=== PATIENT | male | born 1985 | race Caucasian/White ===

== ENCOUNTER 2023-02-08 07:53 | Inpatient (IN) ==
[2023-02-08] MEDS ORDERED: LORazepam 1 MG TAB PO STA (08:29)
[2023-02-08] MEDS ORDERED: SODIUM CHLORIDE 0.9% 1000ML 1,000 ML IV ONE (08:36)
[2023-02-08] MEDS ORDERED: LORazepam 2 MG/1 ML VIAL IV STA (08:40)
[2023-02-08 08:46] LABS: Basophils # (auto) 0.01 K/uL (0-0.2); Basophils % (auto) 0.2 %; Eosinophils # (auto) 0.07 K/uL (0-0.50); Eosinophils % (auto) 1.2 %; Hemoglobin 14.7 g/dl (14.0-18.0); Immature Granulocytes # (auto) 0.01 K/uL (0.01-0.20); Immature Granulocytes % (auto) 0.2 %; Lymphocytes # (auto) 0.86 K/uL (1.2-3.4); Lymphocytes % (auto) 15.3 %; Mean Corpuscular Hemoglobin 31.7 pg (25.0-34.0); Mean Corpuscular Hgb Conc 35.9 g/dL (32.0-36.0); Mean Corpuscular Volume 88.4 fL (80.0-100.0); Mean Platelet Volume 10.5 fL (9.4-12.4); Monocytes # (auto) 0.72 K/uL (0.11-0.59); Monocytes % (auto) 12.8 %; Neutrophils # (auto) 3.95 K/uL (1.40-6.50); Neutrophils % (auto) 70.3 %; Platelet Count 191 K/uL (130-400); RDW Coefficient of Variation 13.3 % (11.5-14.5); RDW Standard Deviation 43.1 fL (36.4-46.3); Red Blood Count 4.64 M/uL (4.70-6.10); White Blood Count 5.62 K/ul (4.8-10.8)
[2023-02-08] MEDS ORDERED: FOLIC ACID 1 MG in SYRINGE 9.8 ML IV STA (08:58)
[2023-02-08] MEDS ORDERED: THIAMINE HCL 100 MG in SYRINGE 9 ML IV STA (08:58)
--- NOTE | 2023-02-08 09:00 | Emergency Department Note ---
Impression & Plan Alcohol withdrawal syndrome ADMIT ED Provider Note HPI: The patient is a 37-year-old gentleman who presents the emergency department with concern for alcohol withdrawal syndrome. Patient states that he drinks alcohol daily, he recently decided to stop drinking alcohol and was working with his PCP on alcohol consumption taper at home. Patient states that he seems to be doing okay and had been limiting his alcohol intake over about the past week. Patient states that overnight last night as he was getting towards the end of his taper he was very restless. He states that he began to have delirious thoughts and at times was having auditory hallucinations. Patient states that he was very tremulous when he woke up this morning and was concerned about possibly going into alcohol withdrawal and therefore he came to the ED for assessment. On arrival here to the ED the patient is very tremulous appearing, he is hypertensive, he is able to give me a coherent history. Patient is otherwise with normal heart rate, he is saturating well on room air without increased work of breathing. Patient presents with a supportive friend at the bedside. ROS: - Per HPI Differential Diagnosis: Alcohol withdrawal syndrome, Wernicke's encephalopathy, alcoholic ketosis, amongst other potential pathologies. *Outpatient medications and allergy history reviewed. *Pertinent external medical records reviewed. PE: General: Alert, anxious appearing HEENT: Normocephalic, trachea midline Eyes: Extraocular eye movement is intact, no scleral erythema Pulmonary: Clear to auscultation bilaterally, no wheezing Cardio: Regular rate and rhythm GI: Abdomen is soft to palpation : No suprapubic tenderness MSK: No evidence of trauma or malformation of the extremities, no edema Skin: No evidence of rash Neuro: Alert, no focal deficits, resting tremulous noted to the upper extremities Psychiatric: Cooperative manager monitoring: (As interpreted by myself): - An order was placed for continuous cardiac monitoring - Patient was noted to be in sinus rhythm with a rate of 85 EKG: (As interpreted by myself): Rate: 92 Rhythm: Normal sinus rhythm Intervals: Within normal limits ST changes: No ST elevation Time: 0825 Interventions provided in ED: -IV Ativan, IV fluid bolus, IV thiamine, IV folic acid Medical Decision Making: Shortly after the patient arrived IV was established and lab work ordered, patient was maintained on quality assurance monitor body. Patient was ordered IV Ativan for tremulousness and reported hallucinations although he does give me a coherent history on arrival. Patient is hypertensive on arrival but otherwise hemodynamically stable. Lab work shows no leukocytosis, hemoglobin is normal, platelet count is normal, CMP shows mild hyponatremia and hypochloremia, metabolic acidosis with serum bicarbonate level at 18, mild transaminitis which I suspect is related to the patient's alcohol abuse history with AST of 100 and ALT of 99, alk phos is within normal limits. Patient's glucose is slightly reduced at 67, he was given orange juice to drink here in the ED as he is still alert and tolerating p.o. intake. Medical alcohol level results of 72, I do suspect given the patient's clinical appearance that he is in the early stages of active withdrawal. He was given IV Ativan here in the ED as well as IV fluid bolus and IV thiamine and IV folic acid. I do feel it would be safest for him to be admitted for benzodiazepine treatment as he goes through withdrawal. Patient is in agreement to this plan and did request admission. Case was discussed with the on-call hospitalist, Dr. Lantigua, and the patient was placed for admission in stable condition. Consultants: Hospitalist service, Dr. Lantigua Disposition discussion held by myself with: Patient and friend at the bedside * CRITICAL CARE TIME: ( 39 ) minutes -Management of active alcohol withdrawal syndrome requiring IV benzodiazepine administration, time spent at the bedside, discussion with other physicians and arrangement of admission. Diagnosis: 1. Alcohol withdrawal syndrome, acute 2. Metabolic acidosis, mild, acute 3. Hyponatremia, mild, acute 4. Transaminitis, mild, alcohol induced 5. Hypoglycemia, mild, acute Disposition: Admission Reynaldo Houser DO Emergency Medicine Past Med/Surg History Social History Smoking Status: Current every day smoker Tobacco Type: Cigarettes Feels Safe at Home: Yes Allergies Allergies Allergy/AdvReac Type Severity Reaction Status Date / Time No Known Allergies Allergy Unverified 02/08/23 08:30 Home Meds Home Medications Medication Instructions Recorded Confirmed No Known Home Medications 02/08/23 02/08/23 Results & Data (ED) Vital Signs Vital Signs - 24 hr 02/08/23 08:07 02/08/23 08:45 Temperature 36.6 C Temperature Source Skin Pulse Rate 97 H Pulse Rate [Left Finger] 83 Pulse Rhythm [Left Finger] Regular Pulse Strength [Left Finger] Normal Respiratory Rate 20 17 Respiratory Effort / Characteristics Non-Labored Spontaneous Non-Labored Spontaneous Respiratory Depth Normal Normal Respiratory Pattern Regular Regular Blood Pressure 156/91 H Blood Pressure [Right Arm] 180/155 H Blood Pressure Mean 112 Blood Pressure Mean [Right Arm] 163 Blood Pressure Position [Right Arm] Sitting Pulse Oximetry 99 99 Oxygen Delivery Method Room Air Room Air Sepsis Recent Fever Within 48 Hours No Sepsis New/Unexplained Change in Mental Status N/A Sepsis Action Taken by Nursing No Action Required Laboratory Data 02/08/23 08:26 02/08/23 08:26 Lab Results 02/08/23 02/08/23 02/08/23 Range/Units 08:26 08:26 08:26 WBC 5.62 (4.8-10.8) K/ul RBC 4.64 L (4.70-6.10) M/uL Hgb 14.7 (14.0-18.0) g/dl Hct 41.0 L (42.0-52.0) % MCV 88.4 (80.0-100.0) fL MCH 31.7 (25.0-34.0) pg MCHC 35.9 (32.0-36.0) g/dL RDW Std Deviation 43.1 (36.4-46.3) fL RDW Coeff of Gwen 13.3 (11.5-14.5) % Plt Count 191 (130-400) K/uL MPV 10.5 (9.4-12.4) fL Immature Gran % (Auto) 0.2 % Neut % (Auto) 70.3 % Lymph % (Auto) 15.3 % [place] % (Auto) 12.8 % Eos % (Auto) 1.2 % Baso % (Auto) 0.2 % Neut # (Auto) 3.95 (1.40-6.50) K/uL Lymph # (Auto) 0.86 L (1.2-3.4) K/uL [place] # (Auto) 0.72 H (0.11-0.59) K/uL Eos # (Auto) 0.07 (0-0.50) K/uL Baso # (Auto) 0.01 (0-0.2) K/uL Immature Gran # (Auto) 0.01 (0.01-0.20) K/uL Sodium 134 L (136-145) mmol/L Potassium 3.8 (3.5-5.1) mmol/L Chloride 96 L (98-107) mmol/L Carbon Dioxide 18 L (21-32) mmol/L Anion Gap 20 H (3-11) BUN 7 (6-23) mg/dl Creatinine 0.77 (0.6-1.4) mg/dl Est Cr Clr Drug Dosing 141.3 ml/min Est GFR ( Amer) 135.3 ml/min Est GFR (Non-Af Amer) 116.7 ml/min BUN/Creatinine Ratio 9.1 L (10-20) Glucose 67 L (70-99(Fasting)) mg/dl Calcium 10.6 H (8.6-10.3) mg/dl Total Bilirubin 1.3 H (0.2-1.0) mg/dl AST 100 H (13-39) U/L ALT 99 H (7-52) U/L Alkaline Phosphatase 65 (34-104) U/L Total Protein 8.4 H (6.0-8.3) gm/dl Albumin 5.3 H (3.4-5.0) gm/dl Globulin 3.1 (2.5-4.0) gm/dl Albumin/Globulin Ratio 1.7 (0.9-2) Salicylates (3.0-30) mg/dl Acetaminophen (10-30) ug/ml Ethyl Alcohol mg/dL 72.2 H (<10.0) mg/dl 02/08/23 Range/Units 08:27 WBC (4.8-10.8) K/ul RBC (4.70-6.10) M/uL Hgb (14.0-18.0) g/dl Hct (42.0-52.0) % MCV (80.0-100.0) fL MCH (25.0-34.0) pg MCHC (32.0-36.0) g/dL RDW Std Deviation (36.4-46.3) fL RDW Coeff of Gwen (11.5-14.5) % Plt Count (130-400) K/uL MPV (9.4-12.4) fL Immature Gran % (Auto) % Neut % (Auto) % Lymph % (Auto) % [place] % (Auto) % Eos % (Auto) % Baso % (Auto) % Neut # (Auto) (1.40-6.50) K/uL Lymph # (Auto) (1.2-3.4) K/uL [place] # (Auto) (0.11-0.59) K/uL Eos # (Auto) (0-0.50) K/uL Baso # (Auto) (0-0.2) K/uL Immature Gran # (Auto) (0.01-0.20) K/uL Sodium (136-145) mmol/L Potassium (3.5-5.1) mmol/L Chloride (98-107) mmol/L Carbon Dioxide (21-32) mmol/L Anion Gap (3-11) BUN (6-23) mg/dl Creatinine (0.6-1.4) mg/dl Est Cr Clr Drug Dosing ml/min Est GFR ( Amer) ml/min Est GFR (Non-Af Amer) ml/min BUN/Creatinine Ratio (10-20) Glucose (70-99(Fasting)) mg/dl Calcium (8.6-10.3) mg/dl Total Bilirubin (0.2-1.0) mg/dl AST (13-39) U/L ALT (7-52) U/L Alkaline Phosphatase (34-104) U/L Total Protein (6.0-8.3) gm/dl Albumin (3.4-5.0) gm/dl Globulin (2.5-4.0) gm/dl Albumin/Globulin Ratio (0.9-2) Salicylates < 3.0 L (3.0-30) mg/dl Acetaminophen < 3 L (10-30) ug/ml Ethyl Alcohol mg/dL (<10.0) mg/dl Administered Medications Sodium Chloride (Nss 1000ml) 1,000 mls @ 999 mls/hr IV .Q1H1M ONE Stop: 02/08/23 09:36 Last Admin: 02/08/23 08:43 Dose: 999 mls/hr Documented By: OFELIA Discontinued Medications Folic Acid 1 mg/ Syringe 10 mls @ 5 mls/min IV NOW STA Stop: 02/08/23 08:59 Last Admin: 02/08/23 09:17 Dose: 5 mls/min Documented By: OFELIA Thiamine HCl 100 mg/ Syringe 10 mls @ 2 mls/min IV NOW STA Stop: 02/08/23 09:02 Last Admin: 02/08/23 09:17 Dose: 2 mls/min Documented By: OFELIA Lorazepam (Lorazepam 1 Mg Tab) 1 mg PO NOW STA Stop: 02/08/23 08:30 Last Admin: 02/08/23 08:32 Dose: Not Given Documented By: OFELIA Lorazepam (Lorazepam 2 Mg/1 Ml Vial) 1 mg IV NOW STA Stop: 02/08/23 08:41 Last Admin: 02/08/23 08:43 Dose: 1 mg Documented By: OFELIA Discharge Plan Visit Data Chief Complaint: Alcohol Withdrawal Stated Complaint: HALLUCINATIONS, RAPID HEART RATE, NAUSEA/VOMITING ED Provider: Reynaldo Houser Discharge Problem: Alcohol withdrawal syndrome Forms Stand Alone Forms: [facility], Suicide Prevention Resources Prescriptions Prescriptions: No Action No Known Home Medications Referrals Referrals: Ruth Hendricks [Primary Care Provider] -
[2023-02-08 09:04] LABS: Albumin Globulin Ratio 1.7 (0.9-2); Albumin Level 5.3 gm/dl (3.4-5.0); BUN Creatinine Ratio 9.1 (10-20); Bilirubin,Total 1.3 mg/dl (0.2-1.0); Calcium 10.6 mg/dl (8.6-10.3); Creatinine Clr Calc Pharmacy 141.3 ml/min; Est GFR (African American) 135.3 ml/min; Est GFR (Non-African American) 116.7 ml/min; Globulin 3.1 gm/dl (2.5-4.0); Potassium 3.8 mmol/L (3.5-5.1); Total Protein 8.4 gm/dl (6.0-8.3)
[2023-02-08 09:15] LABS: Acetaminophen < 3 ug/ml (10-30); Salicylate < 3.0 mg/dl (3.0-30)
--- NOTE | 2023-02-08 09:32 | History & Physical Report ---
Date of Service February 08, 2023 Assessment & Plan (1) Alcohol withdrawal syndrome: Plan: Patient presents with active etoh withdrawal. He had been cutting back his drinking over the last 3 weeks under the guidance of his PCP. He had been drinking 40-55 ounces of liquor each day and was down to <10 ounces as of yesterday. He has had some mild hallucinations but no full-blown DTs to date. Plan - * AWSS protocol with symptom-triggered ativan prn * gabapentin protocol * IV fluids * IV thiamine 500mg IV q8h x 2 days then 200mg BID thereafter * folic acid 1mg daily * MVI daily * repeat labs am * check mag level now * telemetry * consider metoprolol for BP control if BPs continue to remain markedly elevated * social work consult for inpatient/outpatient options for alcohol rehab (2) Alcohol dependence: Plan: Long-standing, severe. See #1 above. (3) Tobacco dependence: Plan: Provide nicoderm patch 14mg/day. 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 (4) Anxiety disorder: Plan: Patient recently weaned off zoloft as outpatient. Consider psych consult for assistance with anxiety; suspect he uses alcohol to cope with anxiety. Check a TSH while here. (5) Abnormal LFTs: Plan: 2nd to etoh. Repeat LFTs am. (6) Metabolic acidosis, increased anion gap: Plan: 2nd to alcohol and starvation/fasting (poor appetite for several days). Will correct with copious IV hydration & time. BMP am. (7) Hypoglycemia: Plan: 2nd to prolonged fasting, alcohol abuse, etc. Repeat BSG was >100. Add dextrose to IV fluids. Plan DVT proph - low risk; defer on chemical means for now. History of Present Illness Chief Complaint: shakes, auditory hallucinations, alcohol withdrawal Primary Care Provider: Ruth Hendricks 37yo male with long-standing alcohol dependence, tobacco dependence, and anxiety/panic disorder presents with several days of shakes, sweats/chills, nausea/emesis, and additional alcohol withdrawal symptoms. After meeting with his PCP about 3-4 weeks ago he had a plan to gradually cut back the amount of alcohol consumption over a 3 week time span. At baseline he was consuming between 40 to 55 ounces of vodka on a daily basis. Denies any beer or wine consumption. He was gradually cutting back the daily alcohol amount by about 10%. Over the last few days he was down to <10 ounces of vodka/day. Yesterday he took about 6 ounces. Starting 1 week ago he developed nausea and vomiting any time he tried to eat. His appetite has been poor, and he has lost about 5 pounds of weight over the last few weeks. He has had hot/cold chills & sweats. Overnight he had auditory hallucinations (hearing conversations of people who weren't there, etc) and had insomnia last evening. His shakes got significantly worse in the last 24 hours as well. Due to the above symptoms he came to the ER today for evaluation. He reports he is committed to stopping his alcohol consumption. His is supportive of this goal. Allergies Allergy/AdvReac Type Severity Reaction Status Date / Time No Known Allergies Allergy Unverified 02/08/23 08:30 Home Medications Medication Instructions Recorded Confirmed Type No Known Home Medications 02/08/23 02/08/23 History Past Med/Surg History Medical History (Updated 02/08/23 @ 10:37 by Ramana Kincaid MD) Alcohol dependence Anxiety disorder Panic disorder Tobacco dependence Surgical History (Updated 02/08/23 @ 10:33 by Ramana Kincaid MD) No pertinent past surgical history Family History (Updated 02/08/23 @ 10:34 by Ramana Kincaid MD) Uncle Polysubstance abuse paternal Brother Alcohol abuse Father COPD (chronic obstructive pulmonary disease) Social History (Updated 02/08/23 @ 10:34 by Ramana Kincaid MD) Smoking Status: Current every day smoker Tobacco Type: Cigarettes Age Started Using Tobacco: 19; packs per day: 0.5; Second Hand Exposure: No; Do You Dip or Chew Tobacco: No; Tobacco Cessation Education Requested by Patient: No Hx Alcohol Use: Yes Alcohol type: hard liquor Alcohol type Comment: 40-55 ounces/day (vodka) Hx Substance Use: No Beliefs That Will Affect Care: None marital status: Current Living Situation: Spouse current occupational status: student 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 - [employer] How many Children do You have: 0 Feels Safe at Home: Yes Safety Concerns: Feels Safe At This Time and Afraid for Self Assistive Devices: Glasses Review of Systems Review of Systems: gen - no fevers but has had cold/hot chills, poor appetite, weight loss eyes - no visual disturbance HENT - no ear pain or sore throat CV - no chest pain pulm - no cough or dyspnea GI - no abd pain; +nausea/emesis; no BRBPR, no melena, no hematemesis, no coffee-ground emesis - no dysuria musculo - chronic low back pain neuro - headaches early in the etoh withdrawal period 2-3 weeks ago skin - no rash endo - no diabetes psych - chronic anxiety Physical Exam Physical Exam: gen - tremulous, but awake/alert, follows commands, no psychosis skin - no rash; multiple tattoos eyes - PERRL, mild horizontal nystagmus heart - tachy, s1 s2, no murmur lungs - CTA b/l abd - soft NT ND BS+; no HSM ext - no edema, pulses 2+ b/l neuro - DTRs brisk b/l upper & lower extremities; strength 5/5 x 4 exts; gait not tested psych - a/o x 3 Results & Data Results & Data Vital Signs (Past 12 Hours) Vital Signs Temp Pulse Pulse Resp BP BP Pulse Ox 02/08/23 08:45 83 17 180/155 H 99 02/08/23 08:07 36.6 C 97 H 20 156/91 H 99 O2 Del Method 02/08/23 08:45 Room Air 02/08/23 08:07 Room Air Laboratory Results Laboratory Results - last 24 hr 02/08/23 02/08/23 02/08/23 08:26 08:26 08:26 WBC 5.62 RBC 4.64 L Hgb 14.7 Hct 41.0 L MCV 88.4 MCH 31.7 MCHC 35.9 RDW Std Deviation 43.1 RDW Coeff of Gwen 13.3 Plt Count 191 MPV 10.5 Immature Gran % (Auto) 0.2 Neut % (Auto) 70.3 Lymph % (Auto) 15.3 [place] % (Auto) 12.8 Eos % (Auto) 1.2 Baso % (Auto) 0.2 Neut # (Auto) 3.95 Lymph # (Auto) 0.86 L [place] # (Auto) 0.72 H Eos # (Auto) 0.07 Baso # (Auto) 0.01 Immature Gran # (Auto) 0.01 Sodium 134 L Potassium 3.8 Chloride 96 L Carbon Dioxide 18 L Anion Gap 20 H BUN 7 Creatinine 0.77 Est Cr Clr Drug Dosing 141.3 Est GFR ( Amer) 135.3 Est GFR (Non-Af Amer) 116.7 BUN/Creatinine Ratio 9.1 L Glucose 67 L POC Glucose Calcium 10.6 H Magnesium Total Bilirubin 1.3 H AST 100 H ALT 99 H Alkaline Phosphatase 65 Total Protein 8.4 H Albumin 5.3 H Globulin 3.1 Albumin/Globulin Ratio 1.7 Salicylates Acetaminophen Ethyl Alcohol mg/dL 72.2 H SARS-CoV-2, RNA, NAAT 02/08/23 02/08/23 02/08/23 08:27 08:28 09:19 WBC RBC Hgb Hct MCV MCH MCHC RDW Std Deviation RDW Coeff of Gwen Plt Count MPV Immature Gran % (Auto) Neut % (Auto) Lymph % (Auto) [place] % (Auto) Eos % (Auto) Baso % (Auto) Neut # (Auto) Lymph # (Auto) [place] # (Auto) Eos # (Auto) Baso # (Auto) Immature Gran # (Auto) Sodium Potassium Chloride Carbon Dioxide Anion Gap BUN Creatinine Est Cr Clr Drug Dosing Est GFR ( Amer) Est GFR (Non-Af Amer) BUN/Creatinine Ratio Glucose POC Glucose Calcium Magnesium Pending Total Bilirubin AST ALT Alkaline Phosphatase Total Protein Albumin Globulin Albumin/Globulin Ratio Salicylates < 3.0 L Acetaminophen < 3 L Ethyl Alcohol mg/dL SARS-CoV-2, RNA, NAAT NEGATIVE 02/08/23 10:00 WBC RBC Hgb Hct MCV MCH MCHC RDW Std Deviation RDW Coeff of Gwen Plt Count MPV Immature Gran % (Auto) Neut % (Auto) Lymph % (Auto) [place] % (Auto) Eos % (Auto) Baso % (Auto) Neut # (Auto) Lymph # (Auto) [place] # (Auto) Eos # (Auto) Baso # (Auto) Immature Gran # (Auto) Sodium Potassium Chloride Carbon Dioxide Anion Gap BUN Creatinine Est Cr Clr Drug Dosing Est GFR ( Amer) Est GFR (Non-Af Amer) BUN/Creatinine Ratio Glucose POC Glucose 103 H Calcium Magnesium Total Bilirubin AST ALT Alkaline Phosphatase Total Protein Albumin Globulin Albumin/Globulin Ratio Salicylates Acetaminophen Ethyl Alcohol mg/dL SARS-CoV-2, RNA, NAAT Diagnostic Findings EKG - my reading - NSR, no ST changes; artifact present PG Care Time/CCT Total # of Minutes Spent Total Time Spent with Patient: Total time spent is greater than 50% in coordination of care (as documented) at patient's floor/unit and/or counseling patient: Coding Level of Care Code 06724 INT INP/OBS CARE 2/55MIN Diagnoses Alcohol withdrawal syndrome F10.939 Alcohol dependence F10.20 Tobacco dependence F17.200 Anxiety disorder F41.9 Abnormal LFTs R79.89 Metabolic acidosis, increased anion gap E87.29 Hypoglycemia E16.2
[2023-02-08] MEDS ORDERED: ONDANSETRON INJ 2 MG/ML 2 ML VIAL IV PRN (11:37)
[2023-02-08] MEDS ORDERED: Ativan PO Alcohol Withdrawal--Active Protocol PO PRN (11:37)
[2023-02-08] MEDS ORDERED: GABAPENTIN 1200MG ALCOHOL WITHDRAWAL LOAD PO STA (11:37)
[2023-02-08] MEDS ORDERED: LORazepam 1 MG TAB PO PRN ×2 (11:37)
[2023-02-08] MEDS ORDERED: ACETAMINOPHEN 325 MG TAB PO PRN (11:37)
[2023-02-08] MEDS ORDERED: GABAPENTIN 600 MG TAB PO ONE (12:00)
[2023-02-08] MEDS: D5NSS + 20MEQ KCL 20 MEQ/1,000 ML BAG IV SCH ×2 (12:03→19:29)
[2023-02-08] MEDS: LORazepam 1 MG TAB PO PRN ×2 (12:09→19:29)
[2023-02-08] MEDS: NICOTINE 14 MG/24 HR PATCH TD SCH (12:45)
[2023-02-08] MEDS: FAMOTIDINE 20 MG in SYRINGE 3 ML IV SCH ×2 (12:45→23:03)
[2023-02-08] MEDS: CEROVITE ADV FORMULA TAB PO SCH (12:45)
[2023-02-08] MEDS: THIAMINE HCL 500 MG in SODIUM CHLORIDE 0.9% 50 ML IV SCH ×2 (16:50→23:03)
[2023-02-08] MEDS: GABAPENTIN 600 MG TAB PO SCH ×2 (17:09→23:03)
[2023-02-09] MEDS: D5NSS + 20MEQ KCL 20 MEQ/1,000 ML BAG IV SCH ×2 (03:03→11:22)
[2023-02-09] MEDS: LORazepam 1 MG TAB PO PRN ×3 (06:21→20:53)
[2023-02-09] MEDS: GABAPENTIN 600 MG TAB PO SCH ×3 (08:07→23:15)
[2023-02-09] MEDS: CEROVITE ADV FORMULA TAB PO SCH (08:07)
[2023-02-09] MEDS: THIAMINE HCL 500 MG in SODIUM CHLORIDE 0.9% 50 ML IV SCH ×3 (08:07→23:17)
[2023-02-09] MEDS: FOLIC ACID 1 MG in SYRINGE 9.8 ML IV SCH (08:07)
[2023-02-09] MEDS: NICOTINE 14 MG/24 HR PATCH TD SCH (08:08)
[2023-02-09 08:28] LABS: Hematocrit (blood only) 34.8 % (42.0-52.0); Mean Corpuscular Hemoglobin 31.9 pg (25.0-34.0); Mean Corpuscular Hgb Conc 34.5 g/dL (32.0-36.0); Mean Corpuscular Volume 92.6 fL (80.0-100.0); Mean Platelet Volume 10.9 fL (9.4-12.4); Platelet Count 128 K/uL (130-400); RDW Coefficient of Variation 13.7 % (11.5-14.5); RDW Standard Deviation 46.5 fL (36.4-46.3); Red Blood Count 3.76 M/uL (4.70-6.10); White Blood Count 2.42 K/ul (4.8-10.8)
[2023-02-09 09:04] LABS: Albumin Globulin Ratio 1.8 (0.9-2); Albumin Level 4.1 gm/dl (3.4-5.0); BUN Creatinine Ratio 10.9 (10-20); Bilirubin,Total 0.8 mg/dl (0.2-1.0); Calcium 8.8 mg/dl (8.6-10.3); Creatinine Clr Calc Pharmacy 169.9 ml/min; Globulin 2.3 gm/dl (2.5-4.0); Total Protein 6.4 gm/dl (6.0-8.3)
--- NOTE | 2023-02-09 10:30 | Electrocardiogram Report ---
Test Reason : Blood Pressure : / mmHG Vent. Rate : 092 BPM Atrial Rate : 092 BPM P-R Int : 148 ms QRS Dur : 088 ms QT Int : 344 ms P-R-T Axes : 057 084 043 degrees QTc Int : 425 ms Normal sinus rhythm Normal ECG No previous ECGs available Confirmed by Andrez Cooper ([id number]) on 02/09/2023 10:30:18 AM Referred By: Ruth Hendricks Confirmed By:Andrez Cooper
--- NOTE | 2023-02-09 12:26 | Hospitalist Progress Note ---
Date of Service February 09, 2023 Assessment & Plan (1) Alcohol withdrawal syndrome: Plan: Ongoing withdrawal but gabapentin + symptom triggered ativan is working well. Cont gabapentin taper. Cont ativan prn. Cont MVI/folate/thiamine. Cont IVF but decrease rate to 50cc/hr since appetite is improved. Cont telemetry. (2) Alcohol dependence: Plan: Long-standing, severe. With active withdrawal. Patient is moving to [place] following this hospital stay. Thus, defer on any referrals for outpatient therapy or inpatient rehab locally here in [place]. (3) Tobacco dependence: Plan: nicoderm patch 14mg/day. 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 (4) Anxiety disorder: Plan: Patient recently weaned off zoloft as outpatient. He declines psych consult for assistance with anxiety. TSH wnl. (5) Abnormal LFTs: Plan: 2nd to etoh. Improved. Repeat ast/alt in am. (6) Metabolic acidosis, increased anion gap: Plan: 2nd to alcohol and starvation/fasting (poor appetite for several days pre- admission). Resolved. (7) Hypoglycemia: Plan: 2nd to prolonged fasting, alcohol abuse, etc. Resolved. (8) Pancytopenia: Plan: Likely 2nd to alcohol and liver toxicity from such. No evidence of any infectious process. Recheck cbc in am. Cont folate supplementation. B12 level is wnl. TSH level is wnl. Plan DVT proph - low risk; defer on chemical means for now. Making good progress to date. Admission and Anticipated Discharge Date Admission Date: February 08, 2023 Subjective tele stable overnight patient feels better overall today still anxious and still with shakes but both are improved ativan is working well for the above symptoms he feels a little unsteady when he tries to ambulate nausea resolved able to tolerate diet - first time he has been able to eat in several days no abd pain still with some minor auditory hallucinations (heard music in the room this am) but this is improved as well plan is for him to move to [place] after he gets out of the hospital his move from [place] to [place] has been in the works for a long time offered to have psych see him in consult while here - he declines however, he did state he would be willing to go back on zoloft at some point in the future Review of Systems Review of Systems: gen - no fevers; some cold chills HENT - no URI symptoms cv - no chest pain pulm - no dyspnea GI - no abd pain/nausea/emesis Physical Exam Physical Exam: gen - looks much better today; awake/alert/oriented heart - RRR, s1 s2, no murmur lungs - CTA b/l abd - soft NT ND BS+; no HSM ext - no edema, pulses 2+ b/l neuro - mild tremors only psych - a/o x 3 Results & Data Results & Data Vital Signs (Past 12 Hours) Vital Signs Temp Pulse Pulse Resp BP Pulse Ox O2 Del Method 02/09/23 11:10 36.4 C L 81 18 138/89 99 Room Air 02/09/23 07:22 36.5 C 71 18 138/93 100 Room Air 02/09/23 07:35 75 02/09/23 03:00 36.4 C L 79 20 130/89 99 Room Air Laboratory Results Laboratory Results - last 24 hr 02/09/23 02/09/23 02/09/23 07:44 07:44 07:44 WBC 2.42 L RBC 3.76 L Hgb 12.0 L Hct 34.8 L MCV 92.6 MCH 31.9 MCHC 34.5 RDW Std Deviation 46.5 H RDW Coeff of Gwen 13.7 Plt Count 128 L MPV 10.9 Sodium 139 Potassium 4.0 Chloride 108 H Carbon Dioxide 25 Anion Gap 6 BUN 7 Creatinine 0.64 Est Cr Clr Drug Dosing 169.9 Est GFR ( Amer) 146.0 Est GFR (Non-Af Amer) 126.0 BUN/Creatinine Ratio 10.9 Glucose 83 Calcium 8.8 Total Bilirubin 0.8 D AST 75 H ALT 67 H Alkaline Phosphatase 49 Total Protein 6.4 D Albumin 4.1 Globulin 2.3 L Albumin/Globulin Ratio 1.8 Vitamin B12 391 TSH 02/09/23 07:44 WBC RBC Hgb Hct MCV MCH MCHC RDW Std Deviation RDW Coeff of Gwen Plt Count MPV Sodium Potassium Chloride Carbon Dioxide Anion Gap BUN Creatinine Est Cr Clr Drug Dosing Est GFR ( Amer) Est GFR (Non-Af Amer) BUN/Creatinine Ratio Glucose Calcium Total Bilirubin AST ALT Alkaline Phosphatase Total Protein Albumin Globulin Albumin/Globulin Ratio Vitamin B12 TSH 1.134 PG Care Time/CCT Total # of Minutes Spent Total Time Spent with Patient: Total time spent is greater than 50% in coordination of care (as documented) at patient's floor/unit and/or counseling patient: Coding Level of Care Code 63967 SUB INP/OBS CARE 2MIN Diagnoses Alcohol withdrawal syndrome F10.939 Alcohol dependence F10.20 Tobacco dependence F17.200 Anxiety disorder F41.9 Abnormal LFTs R79.89 Metabolic acidosis, increased anion gap E87.29 Hypoglycemia E16.2 Pancytopenia D61.818
[2023-02-09] MEDS: FAMOTIDINE 20 MG in SYRINGE 3 ML IV SCH ×2 (12:29→23:14)
[2023-02-10] MEDS: LORazepam 1 MG TAB PO PRN ×3 (01:03→17:42)
[2023-02-10] MEDS: D5NSS + 20MEQ KCL 20 MEQ/1,000 ML BAG IV SCH (05:22)
[2023-02-10] MEDS: THIAMINE HCL 500 MG in SODIUM CHLORIDE 0.9% 50 ML IV SCH (08:21)
[2023-02-10] MEDS: FOLIC ACID 1 MG in SYRINGE 9.8 ML IV SCH (08:21)
[2023-02-10] MEDS: CEROVITE ADV FORMULA TAB PO SCH (08:21)
[2023-02-10 08:22] LABS: Basophils # (auto) 0.01 K/uL (0-0.2); Basophils % (auto) 0.4 %; Eosinophils # (auto) 0.12 K/uL (0-0.50); Eosinophils % (auto) 4.3 %; Hematocrit (blood only) 34.5 % (42.0-52.0); Hemoglobin 11.9 g/dl (14.0-18.0); Lymphocytes # (auto) 0.88 K/uL (1.2-3.4); Lymphocytes % (auto) 31.8 %; Mean Corpuscular Hemoglobin 32.2 pg (25.0-34.0); Mean Corpuscular Hgb Conc 34.5 g/dL (32.0-36.0); Mean Corpuscular Volume 93.2 fL (80.0-100.0); Mean Platelet Volume 11.7 fL (9.4-12.4); Monocytes # (auto) 0.34 K/uL (0.11-0.59); Monocytes % (auto) 12.3 %; Neutrophils # (auto) 1.42 K/uL (1.40-6.50); Neutrophils % (auto) 51.2 %; Platelet Count 119 K/uL (130-400); RDW Coefficient of Variation 13.5 % (11.5-14.5); RDW Standard Deviation 46.3 fL (36.4-46.3); White Blood Count 2.77 K/ul (4.8-10.8)
[2023-02-10] MEDS: NICOTINE 14 MG/24 HR PATCH TD SCH (08:22)
[2023-02-10 08:39] LABS: BUN Creatinine Ratio 9.7 (10-20); Calcium 9.1 mg/dl (8.6-10.3); Creatinine Clr Calc Pharmacy 175.4 ml/min; Est GFR (African American) 147.9 ml/min; Est GFR (Non-African American) 127.6 ml/min; Potassium 3.5 mmol/L (3.5-5.1)
[2023-02-10] MEDS: FAMOTIDINE 20 MG in SYRINGE 3 ML IV SCH (11:26)
[2023-02-10] MEDS ORDERED: GABAPENTIN 600 MG TAB PO SCH (12:00)
--- NOTE | 2023-02-10 18:22 | Discharge Summary ---
Date of Service February 10, 2023 Admission HPI Per Admitting Provider 37yo male with long-standing alcohol dependence, tobacco dependence, and anxiety/panic disorder presents with several days of shakes, sweats/chills, nausea/emesis, and additional alcohol withdrawal symptoms. After meeting with his PCP about 3-4 weeks ago he had a plan to gradually cut back the amount of alcohol consumption over a 3 week time span. At baseline he was consuming between 40 to 55 ounces of vodka on a daily basis. Denies any beer or wine consumption. He was gradually cutting back the daily alcohol amount by about 10%. Over the last few days he was down to <10 ounces of vodka/day. Yesterday he took about 6 ounces. Starting 1 week ago he developed nausea and vomiting any time he tried to eat. His appetite has been poor, and he has lost about 5 pounds of weight over the last few weeks. He has had hot/cold chills & sweats. Overnight he had auditory hallucinations (hearing conversations of people who weren't there, etc) and had insomnia last evening. His shakes got significantly worse in the last 24 hours as well. Due to the above symptoms he came to the ER today for evaluation. He reports he is committed to stopping his alcohol consumption. His is supportive of this goal. Principal Diagnosis Alcohol intoxication and early withdrawal 42 min Discharge Data Allergies Allergy/AdvReac Type Severity Reaction Status Date / Time No Known Allergies Allergy Unverified 02/08/23 08:30 Consultations 02/08/23 09:20 ED Decision to Admit Stat Hospital Course (1) Alcohol withdrawal syndrome: Ongoing withdrawal but gabapentin + symptom triggered ativan is working well. Cont gabapentin taper. Cont ativan prn. Cont MVI/folate/thiamine. Cont IVF but decrease rate to 50cc/hr since appetite is improved. Cont telemetry. (2) Alcohol dependence: Long-standing, severe. With active withdrawal. Patient is moving to [place] following this hospital stay. Thus, defer on any referrals for outpatient therapy or inpatient rehab locally here in [place]. (3) Tobacco dependence: nicoderm patch 14mg/day. [employer] to quit. (4) Anxiety disorder: Patient recently weaned off zoloft as outpatient. He declines psych consult for assistance with anxiety. TSH wnl. (5) Abnormal LFTs: 2nd to etoh. Improved. Repeat ast/alt in am. (6) Metabolic acidosis, increased anion gap: 2nd to alcohol and starvation/fasting (poor appetite for several days pre- admission). Resolved. (7) Hypoglycemia: 2nd to prolonged fasting, alcohol abuse, etc. Resolved. (8) Pancytopenia: Likely 2nd to alcohol and liver toxicity from such. No evidence of any infectious process. Recheck cbc in am. Cont folate supplementation. B12 level is wnl. TSH level is wnl. Plan DVT proph - low risk; defer on chemical means for now. Making good progress to date. Total Time Total Time Spent Total Time Spent (In Minutes): 42 Discharge Plan Discharge Items Patient Disposition: Home - Self-Care Reason For Visit: ACUTE ALCOHOL WITHDRAWAL Discharge Diagnosis: Alcohol dependence and withdrawal Health Concerns: Important for follow-up and counseling for alcohol cessation Goals: Healthy lifestyle Activity: Resume your previous activity Lifting: Gradually increase as tolerated Bathing: No limitations Weightbearing: Full weightbearing Non-emergency contact: Primary Care Provider Call non-emergency contact if: you have any medication questions Follow-up/Referrals: Ruth Hendricks [Primary Care Provider] - Diet: Regular Diet Comment: Suggest rlxd-dmo-werprun vitamins including multivitamin vitamin D vitamin Addtl Attending Provider Instructions: AA Pending Studies at Discharge: No Stand-Alone Forms: My [facility] [employer] Smoking Cessation Medications and DC Order Prescriptions: New famotidine 20 mg Tablet 20 mg PO BID Qty: 60 0RF folic acid 1 mg Tablet 1 mg PO DAILY Qty: 30 0RF Cerovite Senior 0.4 mg-300 mcg- 250 mcg Tablet 1 tab PO QAM Qty: 30 0RF vitamin B complex [B Complex-Vitamin B12] Tablet 1 tab PO DAILY Qty: 30 0RF cholecalciferol (vitamin D3) [Vitamin D3] 25 mcg (1,000 unit) tablet,chewable 2,000 unit PO DAILY Qty: 30 0RF ascorbic acid (vitamin C) 250 mg tablet,chewable 250 mg PO BID Qty: 60 0RF Discharge Orders: Discharge Order (Routine); Ordered 02/10/23 Ordered By: Brendan Lawrence Admission Data Admit Date/Time: 02/08/23 10:15 Attending Provider: Brendan Lawrence Admit Provider: Ramana Kincaid Primary Care Provider: Ruth Hendricks Other Providers: Ashok Lantigua Other Interventions: Discharge Summary Assessment (RN) Last Done: 02/10/23 18:22 Coding Level of Care Code 65292 INP/OBS DISCH >30 MIN Diagnoses Alcohol withdrawal syndrome F10.939 Alcohol dependence F10.20 Tobacco dependence F17.200 Anxiety disorder F41.9 Abnormal LFTs R79.89 Metabolic acidosis, increased anion gap E87.29 Hypoglycemia E16.2 Pancytopenia D61.818 Time Spent (min) 42
[2023-02-10] MEDS ORDERED: THIAMINE HCL 200 MG in SODIUM CHLORIDE 0.9% 50 ML IV SCH (21:00)
[2023-02-10] MEDS ORDERED: FAMOTIDINE 20 MG TAB PO SCH (21:00)
[2023-02-11] MEDS ORDERED: FOLIC ACID 1 MG TAB PO SCH (09:00)
[2023-02-12] MEDS ORDERED: GABAPENTIN 600 MG TAB PO SCH
== END 2023-02-10 19:30 | disposition home or self-care (01) | DRG 897 ==
LOC: ED 07:53 → 2S 10:15 → SUATTDRO 10:15 → 2S 11:20